=== PATIENT | male | born 1980 | race Hispanic/Latino ===

== ENCOUNTER 2020-12-18 12:05 | Emergency (ER) | payer SELFPAY ==
[~2020-12-18] VITALS: Ht 154.9 cm; Wt 68.0 kg
[2020-12-18] MEDS ORDERED: CEFAZOLIN SODIUM 1 GM VIAL IVP SCH (12:12)
[2020-12-18 12:23] LABS: BASOPHILS % (AUTO) 1.5 % (0.0-5.0); EOSINOPHILS % (AUTO) 2.3 % (0.0-8.0); HEMATOCRIT 38.5 % (42-54); LYMPHOCYTES % (AUTO) 26.9 % (21.0-51.0); MEAN CORPUSCULAR HEMOGLOBIN 31.7 pg (27.0-33.0); MEAN CORPUSCULAR HGB CONC 35.1 g/dL (32.0-36.0); MEAN CORPUSCULAR VOLUME 90.4 fL (79-99); MONOCYTES % (AUTO) 8.3 % (3.0-13.0); NEUTROPHILS % (AUTO) 60.7 % (40.0-77.0); PLATELET COUNT (AUTO) 116 K/uL (130-400); RED BLOOD CELL COUNT(AUTO) 4.26 MIL/uL (4.50-6.20); RED CELL DISTRIBUTION WIDTH 12.2 % (11.0-15.5); WHITE BLOOD COUNT (AUTO) 6.5 K/uL (4.8-10.8)
[2020-12-18] MEDS ORDERED: 0.9%NACL 100ML 100 ML ONE (12:31)
[2020-12-18 12:37] LABS: ALBUMIN 4.1 g/dL (3.5-5.0); BILIRUBIN,TOTAL 0.6 mg/dL (0.2-1.0); CREATININE 0.6 mg/dL (0.5-1.5); TOTAL PROTEIN, SERUM 7.9 g/dL (6.0-8.3)
[2020-12-18] MEDS: TETANUS/DIPHTHERIA TOXOID [ADULT] 0.5 ML VIAL IM SCH ×2 (12:44→18:37)
[2020-12-18 12:58] LABS: POTASSIUM 2.8 mmol/L (3.5-5.1)
[2020-12-18] MEDS ORDERED: KCL 20 MEQ ERTAB PO ONE ×2 (17:00→18:20)
[2020-12-18] MEDS ORDERED: CEPH500B PO (17:14)
[2020-12-18 18:36] VITALS: BP 136/77
== END 2020-12-18 18:38 | disposition home or self-care (01) ==
LOC: EDH 12:05
DX: S61.012A Laceration without foreign body of left thumb without damage to nail, initial encounter (principal); E87.6 Hypokalemia; F10.129 Alcohol abuse with intoxication, unspecified; X58.XXXA Exposure to other specified factors, initial encounter; Y93.89 Activity, other specified; Y92.89 Other specified places as the place of occurrence of the external cause; Y99.8 Other external cause status; Y90.8 Blood alcohol level of 240 mg/100 ml or more
CPT/HCPCS: 12001; 36415; 73130; 80053; 85025; 96361; 96374; 99284; J0690

== ENCOUNTER 2024-07-21 13:31 | Emergency (ER) | payer SELFPAY ==
[~2024-07-21] VITALS: Ht 170.2 cm; Wt 56.7 kg
[~2024-07-21 13:31] MED LIST: CEPH500B PO
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
[2024-07-21] MEDS: acetaMINOPHEN 500 MG TABLET PO ONE (14:03)
[2024-07-21] MEDS: teTANUS/diphthERIA TOXOID [ADULT] 0.5 ML VIAL IM ONE (14:04)
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
--- NOTE | 2024-07-21 14:41 | HMCIMG ---
CT MAXILLOFACIAL W/O CONTRAST Indication: RIGHT UPPER LIP THROUGH AND THROUGH LACERATION ECCHYMOSIS RIGHT EYE Technique: Multiple thin section axial images were performed through the face and paranasal sinuses. Coronal reconstructions were performed in soft tissue and bone windows, as well as sagittal reconstructions. Findings: Paranasal sinuses are unremarkable except for right maxillary sinus retention cyst. There is no evidence of facial fracture. Visualized soft tissues are unremarkable. No abnormal contrast enhancement. Visualized intracranial contents are unremarkable. Impression: No acute abnormality of the face.
[2024-07-21] MEDS: LIDOCAINE HCL 1% 20 ML VIAL INJ STA (15:03)
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
--- NOTE | 2024-07-21 15:05 | NUR ---
LACERATION REPAIR BEING DONE AT THIS TIME BY ALMAZ HOWE, [employer] OPERATIONS ASSISTANT
[2024-07-21] MEDS ORDERED: CEPH500T PO (15:19)
[2024-07-21] MEDS ORDERED: IBUP-2070 PO (15:19)
[2024-07-21 15:50] VITALS: BP 121/69; PULSE 90; RESP 16; TEMP 98.2; O2SAT 97
== END 2024-07-21 15:56 | disposition home or self-care (01) ==
LOC: EDH 13:31
DX: S01.511A Laceration without foreign body of lip, initial encounter (principal); S20.212A Contusion of left front wall of thorax, initial encounter; S40.012A Contusion of left shoulder, initial encounter; E78.00 Pure hypercholesterolemia, unspecified; Y08.02XA Assault by strike by baseball bat, initial encounter; Y93.89 Activity, other specified; Y92.89 Other specified places as the place of occurrence of the external cause; Y99.8 Other external cause status
CPT/HCPCS: 40650; 70450; 70486; 71101; 73030; 90471; 90714; 99285